=== PATIENT | female | born 1975 | race African-American/Black ===

== ENCOUNTER 2017-12-26 18:15 | Emergency (ER) | payer MEDICAID ==
[~2017-12-26] VITALS: Ht 154.9 cm; Wt 81.6 kg
[2017-12-26 18:26] VITALS: BP 191/118; Ht 154.9 cm; Wt 81.6 kg
== END 2017-12-26 19:00 | disposition left against medical advice (07) ==
LOC: D.ER 18:15
DX: M54.9 Dorsalgia, unspecified (principal); M54.2 Cervicalgia; V49.9XXA Car occupant (driver) (passenger) injured in unspecified traffic accident, initial encounter; Y93.89 Activity, other specified; Y92.410 Unspecified street and highway as the place of occurrence of the external cause

== ENCOUNTER 2018-02-17 15:53 | Emergency (ER) | payer SELFPAY ==
[~2018-02-17] VITALS: Ht 154.9 cm; Wt 81.6 kg
[2018-02-17 16:01] VITALS: Ht 154.9 cm; Wt 81.6 kg
[2018-02-17] MEDS ORDERED: TORADOL10 MG PO (17:38)
[2018-02-17] MEDS ORDERED: KEFLEX500 MG PO (17:38)
[2018-02-17 18:15] VITALS: BP 208/120
== END 2018-02-17 18:15 | disposition home or self-care (01) ==
LOC: D.ER 15:53
DX: K02.9 Dental caries, unspecified (principal); S00.83XA Contusion of other part of head, initial encounter; Y04.2XXA Assault by strike against or bumped into by another person, initial encounter; Y93.89 Activity, other specified; Y92.019 Unspecified place in single-family (private) house as the place of occurrence of the external cause; R51 Headache